=== PATIENT | female | born 1935 | race Caucasian/White ===

== ENCOUNTER → 2018-06-05 | Outpatient (REF) | payer MEDICARE ==
[~2018-06-05] MED LIST: ACETAMIN500 M2 PO; ALDACTONE50 M1 PO; CIPRO500 MG PO; DIGOXIN0.125 MG PO; DILTIAZEM180 M1 PO; DOCUSATE SOD100 M2 PO; FLEXERIL5 M1 PO; GABAPENTIN300 MG PO; LEVOTHYROXIN25 MC1 PO; LORTAB 7.5 PO; MECLIZINE12.5 M1 PO; METOPROL TAR25 MG PO; METOPROLOL SUCC50 MG PO; NEXIUM40 M1 PO; NITROSTAT0.4 MG PO; PRILOSEC20 MG/CAP; ULTRAM50 M1 PO
== END | disposition home or self-care (01) ==
LOC: MAMMO 10:17
PROVIDERS: ATTEND Internal Medicine
DX: Z12.31 Encounter for screening mammogram for malignant neoplasm of breast (principal)

== ENCOUNTER 2019-06-20 | Emergency (ER) | payer MEDICARE ==
[~2019-06-20] MED LIST changes: -LEVOTHYROXIN25 MC1 PO; +LEVOTHYROXIN50 MCG PO; -MECLIZINE12.5 M1 PO; +MECLIZINE25 MG PO
[2019-06-20 14:32] LABS: ALBUMIN 4.6 g/dL (3.2-5.0); ALKALINE PHOSPHATASE 96 u/l (38-126); ANION GAP 16 (6-22 (CALC)); BILIRUBIN, TOTAL 0.6 mg/dL (0.0-1.4); BUN 26 mg/dL (8-23); BUN/CREATININE RATIO 36 (12-20 (CALC)); CARBON DIOXIDE 26 mmol/l (22-30); CHLORIDE 101 mmol/l (95-108); CREATININE 0.7 mg/dL (0.5-1.0); GFR > 60 ML/MIN (>=60 (CALC)); GFR FOR AFR.AMER. > 60 ML/MIN (>=60 (CALC)); HEMATOCRIT 46.5 % (37.0-47.0); HEMOGLOBIN 14.9 g/dl (12.0-16.0); IMMATURE GRANULOCYTES 1.5 % (0.0-5.0); LIPASE 87 u/l (23-300); MEAN CELL VOLUME 93.4 fL CALC (80.0-100.0); MEAN CORPUSCULAR HGB 29.9 pG CALC (26.0-32.0); NEUT# 7.8 thou/uL (2.00-7.15); POTASSIUM 4.8 mmol/l (3.5-5.1); RED BLOOD COUNT 4.98 mill/uL (4.20-5.60); RED CELL DISTRI WIDTH 13.3 % (11.5-15.5); SGOT/AST 25 u/l (9-36); SODIUM 138 mmol/l (137-146); TOTAL PROTEIN 7.8 g/dL (6.3-8.2)
[2019-06-20 15:40] LABS: URINE BILIRUBIN - DIPSTICK NEGATIVE (NEGATIVE); URINE BLOOD DIPSTICK SMALL (NEGATIVE); URINE COLOR YELLOW; URINE GLUCOSE - DIPSTICK NEGATIVE (NEGATIVE); URINE KETONE NEGATIVE (NEGATIVE); URINE LEUK ESTERASE NEGATIVE (NEGATIVE); URINE NITRITE - DIPSTICK NEGATIVE (Negative); URINE PH 5.5 (4.5-8.0); URINE PROTEIN - DIPSTICK NEGATIVE (NEG-TRACE); URINE UROBILINOGEN - DIPSTICK 0.2 E.U./dL (0.2)
[2019-06-20 15:57] LABS: URINE SQUAMOUS EPITHELIAL CELL FEW EPI/hpf (0-FEW)
[2019-06-20] MEDS ORDERED: NORVASC2.5 M1 PO (17:27)
[2019-06-20] MEDS ORDERED: CYCLOBENZAPR5 MG PO (17:28)
[2019-06-20] MEDS ORDERED: PROTONIX40 M2 PO (17:29)
[2019-06-20] MEDS ORDERED: BENEFIB10 PO (17:30)
[2019-06-20] MEDS ORDERED: MYLANT PO (17:31)
[2019-06-20] MEDS ORDERED: TORADOL PO (18:15)
== END 2019-06-20 18:22 | disposition home or self-care (01) ==
PROVIDERS: Family Medicine
DX: M54.6 Pain in thoracic spine (principal); R10.31 Right lower quadrant pain; I10 Essential (primary) hypertension; E03.9 Hypothyroidism, unspecified
CPT/HCPCS: Q9967